=== PATIENT | female | born 1995 | race Caucasian/White ===

== ENCOUNTER → 2019-02-01 | Outpatient (CLI) | payer BC ==
--- NOTE | 2019-02-01 13:47 | Diagnostic Imaging Report ---
PROCEDURE: US Non-ob pelvis comp/trans. INDICATION: Intrauterine contraceptive device placed in March. Bleeding. TECHNIQUE: Multiple real time caballero scale sonographic images were obtained of the pelvis transabdominally and endovaginally. CORRELATION STUDY: None FINDINGS: UTERUS: 7.3 x 3.3 x 5.1 cm. There is what appears to be likely sub-septate configuration of the uterus. ENDOMETRIUM: 8 mm. Endometrial thickness is within normal limits. The IUD appears to be low lying, positioned near the level of the cervix. RIGHT OVARY: 3.1 x 1.9 x 3.5 cm. LEFT OVARY: 4.3 x 2.0 x 2.5 cm. Somewhat collapsed hypoechoic area at the left ovary may reflect a collapsed cyst 1.6 x 1.6 x 1.3 cm. Normal blood flow to the ovaries. No significant free pelvic fluid. IMPRESSION: 1. Likely septate appearance about the uterus. 2. Intrauterine conceptive device appears to be low lying, positioned at the level of the cervix. 3. Slightly complex hypoechoic mass in the left ovary appears to represent a collapsed cyst. Consideration for repeat imaging in approximately 2-3 menstrual cycles would be recommended. Dictated by: Dictated on workstation # [id number]
== END ==
LOC: RAD 10:06
PROVIDERS: ATTEND Obstetrics & Gynecology
DX: N92.1 Excessive and frequent menstruation with irregular cycle (principal); N83.8 Other noninflammatory disorders of ovary, fallopian tube and broad ligament; Z97.5 Presence of (intrauterine) contraceptive device
CPT/HCPCS: 76830; 76856